=== PATIENT | female | born 1965 | race Hispanic/Latino ===

== ENCOUNTER 2016-09-07 21:42 | Emergency (ER) | payer OTHER ==
[~2016-09-07] VITALS: Ht 162.6 cm; Wt 63.5 kg
--- NOTE | 2016-09-07 21:55 | ED GI/GU/ABDOMINAL COMPLAINT ---
History of Present Illness General Chief Complaint: Syncope and Near-Syncope Stated Complaint: BIBA,SYNCOPE Source: patient, family, old records, EMS Exam Limitations: no limitations Vital Signs & Intake/Output Vital Signs & Intake/Output Vital Signs Date Time Temp Pulse Resp B/P B/P Pulse O2 O2 Flow FiO2 Mean Ox Delivery Rate 09/07 2307 69 109/57 98 Room Air 09/07 2211 97.0 66 20 150/72 98 Room Air ED Intake and Output 09/08 0000 09/07 1200 Intake Total 1000 Output Total Balance 1000 Intake, IV 1000 Patient 140 lb Weight Weight Reported by Patient Measurement Method Allergies Coded Allergies: acetaminophen (UNKNOWN 09/07/16) Reconcile Medications Hyoscyamine (Levsin) 0.125 MG TABLET 1 TAB PO Q4 PRN ABDOMINAL PAIN Ondansetron (Zofran Odt) 4 MG TAB.RAPDIS 1 TAB SL TID PRN NAUSEA Triage Nurses Notes Reviewed? yes ? N Is pt currently ? No HPI: Patient presents with epigastric and right upper quadrant pain since Tuesday. Patient states that the pain is sharp and stabbing in nature. There is no radiation. There is no aggravating or mitigating factors. Positive nausea and vomiting. Patient states that Tuesday the pain started in the morning and was with her all day. Patient woke up yesterday feeling much better. Patient states that she was better today as well until she went to the gym. While in the gym she again experienced the pain. The pain is 8 out of 10. Patient comes in for evaluation. Past History Travel History Traveled to [place] past 21 day No Medical History Any Pertinent Medical History? none Surgical History Surgical History: cholecystectomy Psychosocial History Tobacco Use: Never used ETOH Use: occasional use Illicit Drug Use: denies illicit drug use Family History Hx Contributory? No Review of Systems Review of Systems Constitutional: Reports: no symptoms. EENTM: Reports: no symptoms. Respiratory: Reports: no symptoms. Cardiovascular: Reports: no symptoms. GI: Reports: see HPI, abdominal pain, nausea, vomiting. Genitourinary: Reports: no symptoms. Musculoskeletal: Reports: no symptoms. Skin: Reports: no symptoms. Neurological/Psychological: Reports: no symptoms. Hematologic/Endocrine: Reports: no symptoms. Immunologic/Allergic: Reports: no symptoms. All Other Systems: Reviewed and Negative Physical Exam Physical Exam General Appearance: well developed/nourished, alert, awake, anxious, moderate distress Head: atraumatic, normal appearance Eyes: Bilateral: PERRL, EOMI. Ears, Nose, Throat, Mouth: hearing grossly normal, moist mucous membrane Neck: normal inspection, supple, full range of motion Respiratory: normal breath sounds, chest non-tender, no respiratory distress, lungs clear Cardiovascular: regular rate/rhythm, normal peripheral pulses Gastrointestinal: normal bowel sounds, soft, no organomegaly, tenderness ( EPIGASTRIC) Back: normal inspection, normal range of motion Extremities: normal range of motion Neurologic/Psych: no motor/sensory deficits, awake, alert, oriented x 3, normal mood/affect Skin: intact, normal color, warm/dry Core Measures ACS in differential dx? No Severe Sepsis Present: No Septic Shock Present: No Progress Differential Diagnosis: AAA, AMI, appendicitis, diverticulitis, gastritis, hepatitis, ischemic bowel, inflamm bowel dis, kidney stone, pancreatitis, peptic ulcer, PUD/GERD, SBO, UTI/pyelo Plan of Care: Orders Procedure Date/time Status Telemetry/Brim Pouncing Machine Operator 09/07 2154 Active TROPONIN LEVEL 09/07 2154 Complete LIPASE 09/07 2154 Complete COMPREHENSIVE METABOLIC PANEL 09/07 2154 Complete CBC WITHOUT DIFFERENTIAL 09/07 2154 Complete AMYLASE 09/07 2154 Complete EKG 09/07 2142 Active Laboratory Tests 09/07/16 2207: Anion Gap 11, Estimated GFR > 60, BUN/Creatinine Ratio 30.0 H, Glucose 113 H, Calcium 8.9, Total Bilirubin 0.6, AST 207 H, ALT 141 H, Alkaline Phosphatase 125, Troponin I < 0.01, Total Protein 7.2, Albumin 4.0, Globulin 3.2, Albumin/ Globulin Ratio 1.3, Amylase 52, Lipase 63, CBC w Diff NO MAN DIFF REQ, RBC 4.40, MCV 86.5, MCH 28.9, RDW 13.3, MPV 7.8, Gran % 76.9 H, Lymphocytes % 16.6 L, Monocytes % 5.5, Eosinophils % 0.7, Basophils % 0.3, Absolute Granulocytes 7.8 H, Absolute Lymphocytes 1.7, Absolute Monocytes 0.6, Absolute Eosinophils 0.1, Absolute Basophils 0, PUBS MCHC 33.4 Diagnostic Imaging: Viewed by Me: CT Scan. Discussed w/RAD: CT Scan. Radiology Impression: PATIENT: PAUL VINCENT PRESENT AGE: 51 PATIENT ACCOUNT NO: [id number] : 69 LOCATION: [facility] ORDERING PHYSICIAN: ALIYA CELESTE MD SERVICE DATE: 09/07/16 EXAM TYPE: CAT - CT ABD & PELVIS W IV CONTRAST EXAMINATION: CT ABDOMEN AND PELVIS WITH CONTRAST CLINICAL INFORMATION: Abdominal pain. Elevated LFTs. COMPARISON: None TECHNIQUE: Multidetector volumetric imaging was performed of the abdomen and pelvis after the IV administration of 95 mL of Optiray 320 intravenous contrast. Sagittal and coronal reformatted images were obtained on the technologist's workstation. DLP: 305 mGy-cm FINDINGS: LUNG BASES: The visualized lung bases are unremarkable. LIVER, GALLBLADDER, AND BILIARY TREE: The liver is normal in size, shape, and attenuation. No focal hepatic lesion or biliary ductal dilatation is present. The gallbladder is not seen, likely absent. The common bile duct is normal in caliber with no filling defect. PANCREAS: Unremarkable. SPLEEN: Unremarkable. ADRENAL GLANDS: Unremarkable. KIDNEYS AND URETERS: The kidneys are normal in size, shape, and attenuation. No hydronephrosis, hydroureter, or calculi seen. No perinephric stranding. BLADDER: Unremarkable. GASTROINTESTINAL TRACT: The stomach and small bowel are unremarkable. No dilated loops of bowel or evidence of obstruction. Normal appendix. No colonic wall thickening or inflammatory change. Mild colonic stool burden. No free air or free fluid. ABDOMINAL WALL: No significant hernia is appreciated. Mild fatty atrophy of the gluteus iftikhar bilaterally. LYMPH NODES: Normal. VASCULAR: Unremarkable. PELVIC VISCERA: The uterus and adnexa are unremarkable. OSSEOUS STRUCTURES: No acute or suspicious osseous abnormality. IMPRESSION: No acute findings of the abdomen or pelvis. No focal hepatic lesion. No filling defect of the common bile duct. DICTATED BY: WENDY LYLE MD DATE/TIME DICTATED:09/07/162341 GENERAL PARTNER: ANDREW DATE/TIME TRANSCRIBED:09/07/162341 CONFIDENTIAL, DO NOT COPY WITHOUT APPROPRIATE AUTHORIZATION. <Electronically signed in Other Vendor System> SIGNED BY: VALDO EDMONDSON,WENDY 09/07/16 8271 Initial ED EKG: NSR, nonspecific ST T wave chg Prior EKG: unchanged Comments: Patient is feeling much better. She feels thirsty. Laboratory data and CAT scan have been discussed with the patient and her family. Questions are answered. Departure Departure Disposition: HOME OR SELF CARE Condition: Stable Clinical Impression Primary Impression: Upper abdominal pain, unspecified Secondary Impressions: Nausea & vomiting Qualifiers: Vomiting type: unspecified Vomiting Intractability: non-intractable Qualified Code: R11.2 - Nausea with vomiting, unspecified Additional Instructions: FOLLOW UP WITH YOUR DOCTOR REUTRN FOR ANY CONCERNS Departure Forms: Customer Survey General Discharge Information Prescriptions: Current Visit Scripts Ondansetron (Zofran Odt) 1 TAB SL TID PRN NAUSEA #10 TAB Hyoscyamine (Levsin) 1 TAB PO Q4 PRN ABDOMINAL PAIN #20 TAB
[2016-09-07 22:18] LABS: ABSOLUTE BASOPHIL COUNT 0 /CUMM (0.0-0.2); ABSOLUTE EOSINOPHIL COUNT 0.1 /CUMM (0.0-0.7); ABSOLUTE GRANULOCYTE CT 7.8 /CUMM (1.4-6.5); ABSOLUTE LYMPH COUNT 1.7 /CUMM (1.2-3.4); ABSOLUTE MONOCYTE COUNT 0.6 /CUMM (0.10-0.60); BASOPHIL % 0.3 % (0.0-2.0); EOSINOPHIL % 0.7 % (0-5); GRANULOCYTE % 76.9 % (42.2-75.2); MEAN CORPUSCULAR HGB 28.9 PG (27.0-31.0); MEAN CORPUSCULAR HGB CONC 33.4 G/DL (33.0-37.0); MEAN CORPUSCULAR VOLUME 86.5 FL (81.0-99.0); MEAN PLATELET VOLUME 7.8 FL (7.4-10.4); PLATELET COUNT 295 /CUMM (130-400); RBC DISTRIBUTION WIDTH 13.3 % (11.5-14.5); WHITE BLOOD CELL COUNT 10.2 /CUMM (4.8-10.8)
[2016-09-07 23:07] VITALS: BP 109/57
--- NOTE | 2016-09-07 23:50 | CT SCAN REPORT ---
EXAMINATION: CT ABDOMEN AND PELVIS WITH CONTRAST CLINICAL INFORMATION: Abdominal pain. Elevated LFTs. COMPARISON: None TECHNIQUE: Multidetector volumetric imaging was performed of the abdomen and pelvis after the IV administration of 95 mL of Optiray 320 intravenous contrast. Sagittal and coronal reformatted images were obtained on the technologist's workstation. DLP: 305 mGy-cm FINDINGS: LUNG BASES: The visualized lung bases are unremarkable. LIVER, GALLBLADDER, AND BILIARY TREE: The liver is normal in size, shape, and attenuation. No focal hepatic lesion or biliary ductal dilatation is present. The gallbladder is not seen, likely absent. The common bile duct is normal in caliber with no filling defect. PANCREAS: Unremarkable. SPLEEN: Unremarkable. ADRENAL GLANDS: Unremarkable. KIDNEYS AND URETERS: The kidneys are normal in size, shape, and attenuation. No hydronephrosis, hydroureter, or calculi seen. No perinephric stranding. BLADDER: Unremarkable. GASTROINTESTINAL TRACT: The stomach and small bowel are unremarkable. No dilated loops of bowel or evidence of obstruction. Normal appendix. No colonic wall thickening or inflammatory change. Mild colonic stool burden. No free air or free fluid. ABDOMINAL WALL: No significant hernia is appreciated. Mild fatty atrophy of the gluteus iftikhar bilaterally. LYMPH NODES: Normal. VASCULAR: Unremarkable. PELVIC VISCERA: The uterus and adnexa are unremarkable. OSSEOUS STRUCTURES: No acute or suspicious osseous abnormality. IMPRESSION: No acute findings of the abdomen or pelvis. No focal hepatic lesion. No filling defect of the common bile duct.
[2016-09-08] MEDS ORDERED: LEVSIN0.125 M1 PO (00:05)
[2016-09-08] MEDS ORDERED: ZOFRAN ODT4 M1 SL (00:05)
== END 2016-09-08 00:14 ==
LOC: ERH 21:42
PROVIDERS: Emergency Medicine
DX: R11.2 Nausea with vomiting, unspecified (principal); R10.13 Epigastric pain
CPT/HCPCS: 74177; 93005; 93010; 96361; 96374